=== PATIENT | female | born 1955 | race Caucasian/White ===

== ENCOUNTER 2020-07-21 17:06 | Emergency (ER) | payer MEDICARE, OTHER ==
[~2020-07-21] VITALS: Ht 149.9 cm; Wt 78.4 kg
[2020-07-21] MEDS ORDERED: GABA800T4 PO (17:24)
[2020-07-21] MEDS ORDERED: NEXI20CA PO (17:24)
[2020-07-21 18:01] VITALS: BP 161/90
== END 2020-07-21 18:01 | disposition home or self-care (01) ==
LOC: M ED 17:06
DX: T16.1XXA Foreign body in right ear, initial encounter (principal); X58.XXXA Exposure to other specified factors, initial encounter; Y92.89 Other specified places as the place of occurrence of the external cause; A69.20 Lyme disease, unspecified; K21.9 Gastro-esophageal reflux disease without esophagitis; Z79.899 Other long term (current) drug therapy; Z88.1 Allergy status to other antibiotic agents; Z88.2 Allergy status to sulfonamides; Z88.5 Allergy status to narcotic agent

== ENCOUNTER → 2021-01-24 | Outpatient (CLI) | payer OTHER ==
[~2021-01-24] MED LIST: CLAR1TAB13 PO; FISH1200 PO; GABA800T4 PO; MURO5OIN OS; NEXI20CA PO; OMEP-218; REST0.05 OS; SYST0.4D2 OD; TRAZ-252 PO; VITMTA PO
--- NOTE | 2021-01-26 16:29 | DEXAMM ---
INDICATION: M81.0 AGE RELATED OSTEOPOROSIS. COMPARISON: 10/29/2015, 07/02/2009. TECHNIQUE: Bone density was measured using dual-energy x-ray absorptiometry (DEXA). FINDINGS: AP SPINE L1-L4 BMD 1.066 g/cm2 Young Adult T-Score -1.0 Age Matched Z-Score 0.6. LT FEMUR, TOTAL BMD 1.040 g/cm2 Young Adult T-Score 0.3 Age Matched Z-Score 1.5. LT NECK BMD 0.901 g/cm2 Young Adult T-Score -1.0 Age Matched Z-Score 0.5. RT FEMUR, TOTAL BMD 0.989 g/cm2 Young Adult T-Score -0.1 Age Matched Z-Score 1.1. RT NECK BMD 0.900 g/cm2 Young Adult T-Score -1.0 Age Matched Z-Score 0.5. IMPRESSION: There is low bone density of the spine. There is low bone density of the left hip. There is low bone density of the right hip. The density of the spine has increased 15.6% since the initial exam on 07/02/2009. The density of the spine increased 9.7% since most recent exam on 10/29/2015. The density of the left hip has increased 2.1% since initial exam on 10/11/2015. The density of the right hip has decreased 2.3% since the initial exam on 10/11/2015. FOLLOW-UP: Recommendation for the next bone density exam: 2 years. <Electronically signed by Navjot Morfin > 01/26/21 [id number]
--- NOTE | 2021-01-28 16:30 | REPMRS ---
Patient History The patient states she has not had a clinical breast exam in over a year. Patient is postmenopausal. Family history of breast cancer at age 38 in mother, breast cancer at age 50 or over in maternal cousin. Patient states no breast complaints today. Patient has signed MRS History Sheet. Digital Woman Screen Mammo: January 24, 2021 - Exam #: [id number] Bilateral CC and MLO view(s) were taken. Technologist: Ashley Houston, Technologist Prior study comparison: 2017, bilateral digital mammo screening bilat, [facility]. FINDINGS: There are scattered fibroglandular densities. Screening. Digital screening (2D) mammography was performed bilaterally in the CC and MLO projections. Additionally, breast tomosynthesis (3D mammography) was performed bilaterally in the CC and MLO projections. Todays exam was compared to the prior exam/exams.There are no prior DBT images for comparison. By history, the patient has no complaints of a palpable breast abnormality or other significant breast complaints. The breasts are unchanged in size and shape. There are no susan-soft tissue densities or spiculated masses. There is no internal architectural distortion. There are no suspicious susan-calcific clusters. Skin thickening or nipple retraction is not present. IMPRESSION: BI-RADS Category 2- Benign Findings. There is no evidence of malignant alteration of the breasts. Followup examination recommended in one year. The Volpara volumetric breast density category is B, there are scattered areas of fibroglandular densities. This mammogram was read with the assistance of B-152,an FDA approved computer aided detection system for mammography. The lifetime Tyrer-Cuzick score is 7.1 % Negative x-ray reports should not delay surgical consultation if a dominant or clinically suspicious mass is present. Not all breast cancers can be identified by mammography. Therefore, we recommend that you continue to perform regular breast self-examination and physical examination and then promptly contact your physician of any concerns or changes. Adenosis and dense breasts may obscure an underlying neoplasm. Assessment: BI-RADS/ACR category 2 mammogram. Benign Findings. Recommendation Routine screening mammogram of both breasts in 1 year. Electronically Signed By: Darrion Miranda DO 01/28/21 [id number]
== END ==
LOC: M WHC 14:11
PROVIDERS: ATTEND Pediatrics
DX: Z12.31 Encounter for screening mammogram for malignant neoplasm of breast (principal); M85.851 Other specified disorders of bone density and structure, right thigh; M85.852 Other specified disorders of bone density and structure, left thigh; M85.88 Other specified disorders of bone density and structure, other site

== ENCOUNTER → 2021-01-27 | Outpatient (CLI) | payer OTHER | LOC: M LABSMTC 10:21 | PROVIDERS: ATTEND Anesthesiology | DX: Z20.828 Contact with and (suspected) exposure to other viral communicable diseases (principal); Z11.59 Encounter for screening for other viral diseases ==

== ENCOUNTER 2021-02-01 06:32 | Day surgery (SDC) | payer OTHER ==
[~2021-02-01] VITALS: Ht 147.3 cm; Wt 73.5 kg
[~2021-02-01 06:32] MED LIST changes: +NS 1,000 ML IV ONE
[2021-02-01] MEDS ORDERED: LIDOCAINE 2% 100MG/5ML SDV (FOR ANES.) As Ordered ONE (06:59)
[2021-02-01] MEDS ORDERED: propofoL 200 MG/20 ML VIAL As Ordered ONE ×2 (06:59→08:16)
[2021-02-01] MEDS ORDERED: fentaNYL 100 MCG/2 ML INJECTION (J3010) As Ordered ONE (07:00)
--- NOTE | 2021-02-01 08:32 | ROOR ---
Patient Name: Maryellen Beth Procedure Date: 02/01/2021 7:33 AM Date of : 1955 Age: 65 Room: [facility] Gender: Female Note Status: Finalized Procedure: Upper GI endoscopy Indications: Heartburn Providers: Lukas Wood MD Referring MD: Jimena Orellana MD Requesting Provider: Medicines: Monitored Anesthesia Care Complications: No immediate complications. Procedure: Pre-Anesthesia Assessment: - Prior to the procedure, a History and Physical was performed, and patient medications and allergies were reviewed. The patient is competent. The risks and benefits of the procedure and the sedation options and risks were discussed with the patient. All questions were answered and informed consent was obtained. Patient identification and proposed procedure were verified by the physician, the nurse and the anesthesiologist in the procedure room. Mental Status Examination: alert and oriented. Airway Examination: normal oropharyngeal airway and neck mobility. Respiratory Examination: clear to auscultation. CV Examination: normal. Prophylactic Antibiotics: The patient does not require prophylactic antibiotics. Prior Anticoagulants: The patient has taken no previous anticoagulant or antiplatelet agents. ASA Grade Assessment: II - A patient with mild systemic disease. After reviewing the risks and benefits, the patient was deemed in satisfactory condition to undergo the procedure. The anesthesia plan was to use monitored anesthesia care (MAC). Immediately prior to administration of medications, the patient was re-assessed for adequacy to receive sedatives. The heart rate, respiratory rate, oxygen saturations, blood pressure, adequacy of pulmonary ventilation, and response to care were monitored throughout the procedure. The physical status of the patient was re-assessed after the procedure. The Endoscope was introduced through the mouth, and advanced to the second part of duodenum. The upper GI endoscopy was accomplished without difficulty. The patient tolerated the procedure well. Findings: The examined esophagus was normal. The Z-line was regular and was found 36 cm from the incisors. Scattered mild inflammation characterized by erythema and granularity was found in the gastric antrum. Biopsies were taken with a cold forceps for Helicobacter pylori testing. Verification of patient identification for the specimen was done by the physician and nurse using the patient's name, date and medical record number. Estimated blood loss was minimal. The duodenal bulb and second portion of the duodenum were normal. Impression: - Normal esophagus. - Z-line regular, 36 cm from the incisors. - Gastritis. Biopsied. - Normal duodenal bulb and second portion of the duodenum. Recommendation: - Patient has a contact number available for emergencies. The signs and symptoms of potential delayed complications were discussed with the patient. Return to normal activities tomorrow. Written discharge instructions were provided to the patient. - High fiber diet. - Continue present medications. - Await pathology results. - Follow an antireflux regimen. - Telephone GI clinic for pathology results in 2 weeks. - Return to GI clinic if persistent symptoms or new symptoms. - Return to primary care physician. Procedure Code(s): --- Professional --- 85764, Esophagogastroduodenoscopy, flexible, transoral; with biopsy, single or multiple Diagnosis Code(s): --- Professional --- K29.70, Gastritis, unspecified, without bleeding R12, Heartburn CPT copyright 2019 [employer]. All rights reserved. The codes documented in this report are preliminary and upon hotel supplies salesperson review may be revised to meet current compliance requirements. Lukas Wood MD Lukas Wood MD 02/01/2021 8:31:36 AM Electronically signed by Lukas Wood MD Number of Addenda: 0 Note Initiated On: 02/01/2021 7:33 AM Estimated Blood Loss: Estimated blood loss was minimal.
--- NOTE | 2021-02-01 08:41 | ROOR ---
Patient Name: Maryellen Beth Procedure Date: 02/01/2021 7:37 AM Date of : 1955 Age: 65 Room: [facility] Gender: Female Note Status: Finalized Procedure: Colonoscopy Indications: Screening for colorectal malignant neoplasm Providers: Lukas Wood MD Referring MD: Jimena Orellana MD Requesting Provider: Medicines: Monitored Anesthesia Care Complications: No immediate complications. Procedure: Pre-Anesthesia Assessment: - Prior to the procedure, a History and Physical was performed, and patient medications and allergies were reviewed. The patient is competent. The risks and benefits of the procedure and the sedation options and risks were discussed with the patient. All questions were answered and informed consent was obtained. Patient identification and proposed procedure were verified by the physician, the nurse and the anesthesiologist in the procedure room. Mental Status Examination: alert and oriented. Airway Examination: normal oropharyngeal airway and neck mobility. Respiratory Examination: clear to auscultation. CV Examination: normal. Prophylactic Antibiotics: The patient does not require prophylactic antibiotics. Prior Anticoagulants: The patient has taken no previous anticoagulant or antiplatelet agents. ASA Grade Assessment: II - A patient with mild systemic disease. After reviewing the risks and benefits, the patient was deemed in satisfactory condition to undergo the procedure. The anesthesia plan was to use monitored anesthesia care (MAC). Immediately prior to administration of medications, the patient was re-assessed for adequacy to receive sedatives. The heart rate, respiratory rate, oxygen saturations, blood pressure, adequacy of pulmonary ventilation, and response to care were monitored throughout the procedure. The physical status of the patient was re-assessed after the procedure. The Colonoscope was introduced through the anus and advanced to the cecum, identified by appendiceal orifice and ileocecal valve. The colonoscopy was performed without difficulty. The patient tolerated the procedure well. The quality of the bowel preparation was fair and poor. The terminal ileum, ileocecal valve, appendiceal orifice, and rectum were photographed. Scope insertion time was 2 minutes. Scope withdrawal time was 8 minutes. The total duration of the procedure was 12 minutes. Findings: The perianal and digital rectal examinations were normal. Semi-liquid semi-solid stool was found from descending colon to cecum, interfering with visualization. Lavage of the area was performed using a large amount of sterile water, resulting in clearance with fair visualization. Two sessile polyps were found in the ascending colon. The polyps were 8 to 10 mm in size. These polyps were removed with a cold snare. Resection and retrieval were complete. Verification of patient identification for the specimen was done by the physician and nurse using the patient's name, date and medical record number. Estimated blood loss was minimal. Multiple small-mouthed diverticula were found in the sigmoid colon. There was no evidence of diverticular bleeding. The colon (entire examined portion) was significantly tortuous. Non-bleeding external and internal hemorrhoids were found during retroflexion. The hemorrhoids were medium-sized. Impression: - Preparation of the colon was fair. - Preparation of the colon was poor. - Stool from descending to cecum. - Two 8 to 10 mm polyps in the ascending colon, removed with a cold snare. Resected and retrieved. - Mild diverticulosis in the sigmoid colon. There was no evidence of diverticular bleeding. - Tortuous colon. - Non-bleeding external and internal hemorrhoids. Recommendation: - Patient has a contact number available for emergencies. The signs and symptoms of potential delayed complications were discussed with the patient. Return to normal activities tomorrow. Written discharge instructions were provided to the patient. - High fiber diet. - Continue present medications. - Await pathology results. - Repeat colonoscopy in 1 - 3 years because the bowel preparation was suboptimal and for surveillance based on pathology results. - Telephone GI clinic for pathology results in 2 weeks. - Return to GI clinic if persistent symptoms or new symptoms. - Use fiber, for example Citrucel, Fibercon, Konsyl or Metamucil. - Return to primary care physician. Procedure Code(s): --- Professional --- 59153, Colonoscopy, flexible; with removal of tumor(s), polyp(s), or other lesion(s) by snare technique Diagnosis Code(s): --- Professional --- Z12.11, Encounter for screening for malignant neoplasm of colon K64.8, Other hemorrhoids K63.5, Polyp of colon K57.30, Diverticulosis of large intestine without perforation or abscess without bleeding Q43.8, Other specified congenital malformations of intestine CPT copyright 2019 [employer]. All rights reserved. The codes documented in this report are preliminary and upon merchandiser retail representative review may be revised to meet current compliance requirements. Lukas Wood MD Lukas Wood MD 02/01/2021 8:41:21 AM Electronically signed by Lukas Wood MD Number of Addenda: 0 Note Initiated On: 02/01/2021 7:37 AM Estimated Blood Loss: Estimated blood loss was minimal.
[2021-02-01 09:07] VITALS: BP 142/68
== END 2021-02-01 09:06 | disposition home or self-care (01) ==
LOC: M OPP 06:32
PROVIDERS: ATTEND Internal Medicine Gastroenterology
DX: Z12.11 Encounter for screening for malignant neoplasm of colon (principal); D12.6 Benign neoplasm of colon, unspecified; K57.30 Diverticulosis of large intestine without perforation or abscess without bleeding; K64.8 Other hemorrhoids; K29.70 Gastritis, unspecified, without bleeding; R12 Heartburn
CPT/HCPCS: 43239; 45385; 88305; J3010

== ENCOUNTER → 2021-03-28 | Outpatient (CLI) | payer OTHER ==
[~2021-03-28] MED LIST changes: -NS 1,000 ML IV ONE
--- NOTE | 2021-03-30 07:04 | REP ---
INDICATION: THYROID NODULE COMPARISON: None. TECHNIQUE: Morfin scale and color evaluation of the thyroid gland using the linear high frequency transducer. FINDINGS: The thyroid gland is heterogeneous with diffuse scattered nonspecific cystic and solid nodules. Right thyroid lobe measures 4.7 x 1.3 x 1.3 cm with the largest complex cyst measuring 10 mm in the midpole and the largest hypoechoic nodule measuring 6 mm in the upper pole. Isthmus measures 2 mm in width. Left thyroid lobe measures 4.0 x 1.2 x 1.3 cm with the largest complex cyst measuring 7 mm in the midpole approaching the isthmus and largest hypoechoic nodule measuring 6 mm in the mid/upper pole. IMPRESSION: Findings suggesting multinodular goiter. <Electronically signed by Heath Cerda > 03/30/21 0701
== END ==
LOC: M RAD 13:29
PROVIDERS: ATTEND Pediatrics
DX: E04.1 Nontoxic single thyroid nodule (principal)

== ENCOUNTER → 2022-01-10 | Outpatient (CLI) | payer OTHER ==
[~2022-01-10] MED LIST changes: +OMEP-173; -OMEP-218
== END ==
LOC: M RAD 12:57
PROVIDERS: ATTEND Otolaryngology
DX: E04.1 Nontoxic single thyroid nodule (principal)